=== PATIENT | male | born 1955 | race Caucasian/White ===

== ENCOUNTER 2024-07-05 14:35 | Emergency (ER) | payer MEDICARE ==
[~2024-07-05] VITALS: Ht 188 cm; Wt 90.0 kg
[2024-07-05 14:41] VITALS: TEMP 98.7
[2024-07-05] MEDS: albuterol 2.5 MG/3 ML nebule NEB ONE ×2 (15:13)
[2024-07-05] MEDS: ipratropium/albuterol 3ml nebule NEB ONE (15:14)
[2024-07-05 15:17] VITALS: PULSE 93; RESP 15; O2SAT 98
[2024-07-05 15:24] LABS: BASOPHILS % (AUTO) 0.3 % (0-1); EOSINOPHILS # (AUTO) 0.1 X10'3 (0-0.9); EOSINOPHILS % (AUTO) 1.6 % (0-6); HEMATOCRIT 49.5 % (42.0-52.0); HEMOGLOBIN 16.6 g/dl (14.0-17.9); LYMPHOCYTES # (AUTO) 1.3 X10'3 (1.1-4.8); LYMPHOCYTES % (AUTO) 15.7 % (21-51); MEAN CORPUSCULAR HEMOGLOBIN 31.7 PG (27.0-31.0); MEAN CORPUSCULAR HGB CONC 33.5 g/dL (33.0-36.5); MEAN CORPUSCULAR VOLUME 94.7 FL (78-98); MEAN PLATELET VOLUME 7.5 FL (7.4-10.4); MONOCYTES # (AUTO) 0.7 X10'3 (0-0.9); NEUTROPHILS # (AUTO) 6.3 X10'3 (1.8-7.7); NEUTROPHILS % (AUTO) 74.4 % (42-75); PLATELET COUNT 169 X10'3 (140-440); RED BLOOD COUNT 5.22 X10'6 (4.70-6.10); WHITE BLOOD COUNT 8.4 X10'3 (4.5-11.0)
[2024-07-05 15:30] LABS: APTT 26 SECONDS (22-32); PROTHROMBIN TIME 10.4 SECONDS (9.0-12.0)
[2024-07-05 15:40] LABS: ALBUMIN 3.8 G/DL (3.4-5.0); ANION GAP 9 (8-16); BLOOD UREA NITROGEN 21 MG/DL (7-18); BUN/CREATININE RATIO 27.6 (10.0-20.0); CALCIUM 10.1 MG/DL (8.5-10.1); CHLORIDE 100 MMOL/L (99-107); CREATININE 0.76 MG/DL (0.60-1.10); GLUCOSE 101 MG/DL (70-104); PRO BRAIN NATRIURETIC PEPTIDE 1576 PG/ML (0-125); SODIUM 138 MMOL/L (135-145); TOTAL CARBON DIOXIDE 28.9 MMOL/L (24-32); eCRCL 111 ML/MIN; eGFR > 90 ML/MIN
[2024-07-05] MEDS: normal saline 1000ML IV soln IVB ONE (15:58)
[2024-07-05] MEDS: methylPREDNISolone sod succ 125mg/2ml vial IV ONE (16:01)
[2024-07-05 16:06] VITALS: PULSE 102; RESP 26; O2SAT 95
[2024-07-05] MEDS: aspirin 81mg tab.chew PO ONE (16:55)
[2024-07-05] MEDS: ringers solution, lacted 1,000 ML IV ONE (16:55)
[2024-07-05 21:00] VITALS: BP 146/75; PULSE 103; RESP 17; O2SAT 94
== END 2024-07-05 22:10 | disposition left against medical advice (07) ==
LOC: ER 14:36
DX: J98.8 Other specified respiratory disorders (principal); R06.02 Shortness of breath; R06.83 Snoring; M54.2 Cervicalgia; Z20.822 Contact with and (suspected) exposure to COVID-19
CPT/HCPCS: 36415; 70490; 71045; 71250; 80048; 83605; 83880; 84484; 85025; 85610; 85730; 87040; 87811; 93005; 94640; 96361; 96365; 96375; 99285; A7015; J2919; J7030; J7120; Z7610; 70491; 71260; 94760

== ENCOUNTER 2024-08-21 07:26 | Day surgery (SDC) | payer MEDICARE, BC ==
[~2024-08-21] VITALS: Ht 193 cm; Wt 103.8 kg
[2024-08-21] VITALS (11 sets, daily range): BP systolic 99–140; BP diastolic 51–79; PULSE 73–98; RESP 13–22; TEMP 94; O2SAT 93–95
[2024-08-21 08:22] LABS: ALBUMIN 3.7 G/DL (3.4-5.0); ANION GAP 9 (8-16); BLOOD UREA NITROGEN 15 MG/DL (7-18); BUN/CREATININE RATIO 16.7 (10.0-20.0); CALCIUM 10.3 MG/DL (8.5-10.1); CHLORIDE 102 MMOL/L (99-107); GLUCOSE 107 MG/DL (70-104); MAGNESIUM 1.7 MG/DL (1.5-2.4); POTASSIUM 3.6 MMOL/L (3.5-5.1); PROTHROMBIN TIME 10.3 SECONDS (9.0-12.0); SODIUM 138 MMOL/L (135-145); TOTAL CARBON DIOXIDE 26.7 MMOL/L (24-32); eCRCL 99 ML/MIN; eGFR 84 ML/MIN
[2024-08-21 08:26] LABS: BASOPHILS % (AUTO) 0.7 % (0-1); EOSINOPHILS # (AUTO) 0.1 X10'3 (0-0.9); EOSINOPHILS % (AUTO) 2.1 % (0-6); HEMATOCRIT 45.1 % (42.0-52.0); HEMOGLOBIN 15.3 g/dl (14.0-17.9); LYMPHOCYTES # (AUTO) 1.4 X10'3 (1.1-4.8); LYMPHOCYTES % (AUTO) 25.9 % (21-51); MEAN CORPUSCULAR HEMOGLOBIN 31.8 PG (27.0-31.0); MEAN CORPUSCULAR HGB CONC 33.9 g/dL (33.0-36.5); MEAN CORPUSCULAR VOLUME 93.7 FL (78-98); MONOCYTES # (AUTO) 0.7 X10'3 (0-0.9); MONOCYTES % (AUTO) 12.3 % (2-12); NEUTROPHILS # (AUTO) 3.1 X10'3 (1.8-7.7); PLATELET COUNT 199 X10'3 (140-440); RED BLOOD COUNT 4.82 X10'6 (4.70-6.10); RED CELL DISTRIBUTION WIDTH 13.7 % (11.5-14.5); WHITE BLOOD COUNT 5.3 X10'3 (4.5-11.0)
[2024-08-21] MEDS ORDERED: CARV3.122 PO (08:47)
[2024-08-21] MEDS ORDERED: VALS40TA11 PO (08:47)
[2024-08-21] MEDS ORDERED: SPIR25TA5 PO (08:47)
[2024-08-21] MEDS ORDERED: FURO-150 PO (08:47)
[2024-08-21] MEDS: normal saline 1000ml 1,000 ML IV SCH (09:00)
[2024-08-21] MEDS: diphenhydrAMINE 25mg capsule PO PRN (09:00)
[2024-08-21] MEDS ORDERED: midazolam 1 mg/ML 2ml injection ONE ×2 (12:05→12:42)
[2024-08-21] MEDS ORDERED: heparin 1,000unit/ml 10ml vial 10 ML ONE (12:05)
[2024-08-21] MEDS ORDERED: verapamil 2.5 mg/ml inj IV ONE (12:05)
[2024-08-21] MEDS ORDERED: iohexol 350 MG/ML 50ML vial IV ONE (12:05)
[2024-08-21] MEDS ORDERED: fentaNYL/PF 50MCG/1 ML 2ML syringe ONE (12:05)
[2024-08-21] MEDS ORDERED: LIDOcaine 1% 30ml preserv. free vial ONE (12:05)
[2024-08-21] MEDS ORDERED: nitroGLYCERIN 500mcg/5mL D5W 5 ML IV ONE (12:06)
[2024-08-21] MEDS ORDERED: iohexol 350MG/ML 100ml bottle IV ONE (12:06)
[2024-08-21] MEDS ORDERED: HYDROcodone/acetaminophen 5mg/325mg tablet PO PRN (13:35)
[2024-08-21] MEDS ORDERED: normal saline 1000ml 1,000 ML IV SCH (13:35)
[2024-08-21] MEDS ORDERED: proCHLORperazine 10 MG/2 ml inj IV PRN (13:35)
[2024-08-21] MEDS ORDERED: ondansetron/PF 4mg/2ml inj IV PRN (13:35)
[2024-08-21] MEDS ORDERED: HYDROcodone/acetaminophen 10/325mg tab PO PRN (13:35)
== END 2024-08-21 17:30 | disposition home or self-care (01) ==
LOC: SSTAY O 07:26
PROVIDERS: ATTEND Internal Medicine Cardiovascular Disease
DX: R94.39 Abnormal result of other cardiovascular function study (principal); I25.10 Atherosclerotic heart disease of native coronary artery without angina pectoris; C76.1 Malignant neoplasm of thorax; I10 Essential (primary) hypertension; Z79.01 Long term (current) use of anticoagulants; Z79.899 Other long term (current) drug therapy; Z98.890 Other specified postprocedural states
CPT/HCPCS: 36415; 80048; 83735; 85025; 85610; 93005; 93458; 99152; A6258; A6402; C1894; J1644; J2003; J2250; J3010; J3490; J7030; Q0163; Q9967; Z7610; 99153

== ENCOUNTER 2024-08-25 05:54 | Day surgery (SDC) | payer MEDICARE, BC ==
[2024-08-25] VITALS (8 sets, daily range): BP systolic 92–102; BP diastolic 54–69; PULSE 60–77; RESP 10–16; O2SAT 92–97
[~2024-08-25] VITALS: Ht 193 cm; Wt 104.4 kg
[~2024-08-25 05:54] MED LIST: CARV3.122 PO; FURO-150 PO; SPIR25TA5 PO; VALS40TA11 PO
[2024-08-25 07:19] LABS: PROTHROMBIN TIME 10.3 SECONDS (9.0-12.0)
[2024-08-25 07:26] LABS: BASOPHILS % (AUTO) 0.5 % (0-1); EOSINOPHILS # (AUTO) 0.1 X10'3 (0-0.9); EOSINOPHILS % (AUTO) 2.2 % (0-6); HEMATOCRIT 42.2 % (42.0-52.0); HEMOGLOBIN 14.6 g/dl (14.0-17.9); LYMPHOCYTES # (AUTO) 1.6 X10'3 (1.1-4.8); LYMPHOCYTES % (AUTO) 29.4 % (21-51); MEAN CORPUSCULAR HEMOGLOBIN 32.1 PG (27.0-31.0); MEAN CORPUSCULAR HGB CONC 34.6 g/dL (33.0-36.5); MEAN CORPUSCULAR VOLUME 92.7 FL (78-98); MEAN PLATELET VOLUME 7.2 FL (7.4-10.4); MONOCYTES # (AUTO) 0.6 X10'3 (0-0.9); MONOCYTES % (AUTO) 11.8 % (2-12); NEUTROPHILS % (AUTO) 56.1 % (42-75); PLATELET COUNT 196 X10'3 (140-440); RED BLOOD COUNT 4.55 X10'6 (4.70-6.10); RED CELL DISTRIBUTION WIDTH 13.6 % (11.5-14.5); WHITE BLOOD COUNT 5.3 X10'3 (4.5-11.0)
[2024-08-25 07:33] LABS: ALBUMIN 3.6 G/DL (3.4-5.0); ANION GAP 10 (8-16); BLOOD UREA NITROGEN 21 MG/DL (7-18); BUN/CREATININE RATIO 24.7 (10.0-20.0); CALCIUM 10.3 MG/DL (8.5-10.1); CHLORIDE 103 MMOL/L (99-107); CREATININE 0.85 MG/DL (0.60-1.10); GLUCOSE 102 MG/DL (70-104); MAGNESIUM 1.7 MG/DL (1.5-2.4); POTASSIUM 3.6 MMOL/L (3.5-5.1); SODIUM 139 MMOL/L (135-145); TOTAL CARBON DIOXIDE 25.8 MMOL/L (24-32); eCRCL 105 ML/MIN; eGFR 90 ML/MIN
[2024-08-25] MEDS: VANCOMYCIN/WATER FOR INJ (PEG) 1.5GM/300 ML IVPB IV ONE (07:54)
[2024-08-25] MEDS: normal saline 1,000 ML IV SCH (07:54)
[2024-08-25] MEDS ORDERED: fentaNYL/PF 50MCG/1 ML 2ML syringe ONE ×2 (08:20→09:49)
[2024-08-25] MEDS ORDERED: iohexol 350 MG/ML 50ML vial IV ONE ×2 (08:20)
[2024-08-25] MEDS ORDERED: midazolam 1 mg/ML 2ml injection ONE ×2 (08:20→09:49)
[2024-08-25] MEDS ORDERED: LIDOcaine 1% w/EPI 1:100,000 inj. MDV 50 ML VIAL ONE (08:20)
[2024-08-25] MEDS ORDERED: vancomycin 1,000mg inj ONE (08:20)
[2024-08-25] MEDS ORDERED: ceFAZolin 1000mg inj ONE (09:29)
[2024-08-25] MEDS ORDERED: HYDROmorphone 1 mg/ml syringe ONE ×2 (09:55→10:55)
[2024-08-25] MEDS ORDERED: HYDROcodone/acetaminophen 10/325mg tab PO PRN (11:50)
[2024-08-25] MEDS: HYDROcodone/acetaminophen 5mg/325mg tablet PO PRN (12:48)
== END 2024-08-25 14:10 | disposition home or self-care (01) ==
LOC: SSTAY O 05:54
PROVIDERS: ATTEND Internal Medicine Cardiovascular Disease
DX: I42.8 Other cardiomyopathies (principal); I44.7 Left bundle-branch block, unspecified; I10 Essential (primary) hypertension; C14.0 Malignant neoplasm of pharynx, unspecified; Z93.0 Tracheostomy status; Z95.810 Presence of automatic (implantable) cardiac defibrillator
CPT/HCPCS: 33249; 36415; 71045; 80048; 83735; 85025; 85610; 93005; 99152; 99153; A4565; A4615; A4620; C1769; C1882; J0690; J1171; J2250; J3010; J3370; J3372; J3490; J7030; Q9967; Z7610; C1895; C1898; C1900

== ENCOUNTER 2025-03-09 14:30 | Outpatient (CLI) | payer MEDICARE, BC ==
--- NOTE | 2025-03-11 18:47 | CONSULTATION ---
DATE OF CONSULTATION: 03/09/2025 DICTATING PHYSICIAN: Lizzy Ayala M.S., [facility] MODIFIED BARIUM SWALLOW STUDY REPORT REFERRING PHYSICIAN: Fermin Moore III, MD HISTORY OF PRESENT ILLNESS: The patient is a 69-year-old male and consents to this evaluation. History is obtained from the patient and medical records. The patient's was not present during history collection, but she did come into the room to view the results. The patient has a history of malignant neoplasm of the larynx. On 07/06/2024, he underwent emergent tracheostomy. He completed chemo and radiation for throat cancer and completed in 12/2024. He went to the ER and had a new tracheostomy placed on 01/20/2025. The patient reports he had 35 total radiation treatments and 7 chemotherapy treatments. The patient notes that he is currently utilizing a PEG tube for his nutritional shakes and to swallow one medication. He reports that he has four 530 calorie shakes during the day through his PEG tube. The patient reports that he has just recently got his taste back and so he is trying to have food and liquid orally. He has been drinking water, soda and has been having ice cream, but reports nothing else at this time. The patient did note that his throat has a lot of pain and that it feels raw around the site of his trach. He reports that he has been having increased swelling and stiffness in the muscles in his throat and in the last couple of weeks. The patient reports that his baseline weight was 260 pounds and he is now currently 200 pounds. He is edentulous. CURRENT DIET: The patient is receiving most of his nutrition via PEG tube, but has been having liquids intermittently. MEDICATIONS: Acetaminophen, hydrocodone 325 mg/5 mg one tablet every four hours as needed, carvedilol 3.125 mg one tablet twice daily, Lasix, lidocaine 1% topical solution t.i.d., Magic mouthwash, magnesium oxide 400 mg b.i.d., MiraLax oral powder 17 g p.o. daily, spironolactone 25 mg 1 tablet daily, valsartan 40 mg 1 tablet daily. PARAMETERS: The patient is seated in the lateral 90-degree view and administered thin and nectar thick liquids as well as puree consistencies. Solid consistencies were not administered at this time due to the patient's tolerance of prior textures. RESULTS: In the oral stages of the swallow, lingual strength was noted to be mild to moderately reduced. There was a mild oral residue following the initial swallow of boluses. In the pharyngeal stage of the swallow, tongue base retraction was mild to moderately reduced. There was a moderate pharyngeal residue following the initial swallow of boluses. The patient demonstrated most difficulty with the boluses that were administered via spoon, which included the 1 mL and 3 mL thin liquid bolus and the puree bolus. It was noted that the patient demonstrated with aspiration that was slight for the puree bolus due to the decreased amount of pharyngeal clearance that occurred in the initial swallow of the bolus, the patient aspirated on the pharyngeal residue. The patient was able to adequately swallow self-regulated boluses of thin liquid from a cup one out of 2 times. The second time, he did not adequately move the tongue base and so he demonstrated with lena aspiration. He did recognize at that time that he did not correctly push the tongue base to the back of the throat as he does do better if he utilizes an effortful swallow in order to swallow the bolus. The patient also completed self-regulated nectar thick liquid from a cup that went well with no aspiration. The pt required multiple swallows to clear residue from the pharyngeal cavity for all consistencies. 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 The patient did not have his speaking valve in for the different boluses that he had. He was instructed to put it in when swallowing, but he reported that he had been having such difficulty with production that he was not able to breathe with it in at this time and he needed to have it out. DIAGNOSES: R13.12, dysphagia oropharyngeal phase, Z85.21, personal history of malignant neoplasm of the larynx, C14.0, throat cancer. PATIENT EDUCATION: Immediately following a modified barium swallow study, the patient and his were able to view the results. The patient was able to see how the current status of the swallowing mechanism decreases his ability to swallow normally. The patient was educated on the effortful swallow and was instructed to begin to practice 2 sets of 10 on a daily basis. The patient was also instructed in a further swallowing exercise to target strengthening of the tongue base and was instructed to complete two sets of 5 four days a week. He was then also instructed on a recommendation for speech therapy to strengthen the muscles involved in swallowing and agrees to participate at this time. RECOMMENDATIONS: * It is recommended the patient receive concomitant voice and swallowing therapy one time weekly for 12 weeks to improve the strength and range of motion of the swallowing musculature to ensure airway, safety protection and prevent aspiration. * It is recommended that the patient begin to complete these exercises targeting tongue base retraction. LONG-TERM GOALS: The patient will maintain adequate hydration/nutrition with optimum safety and efficiency of swallow function on p.o. intake and increase FOIS score to a 5, which indicates total oral intake of multiple consistencies requiring special preparation. PROGNOSIS: Prognosis for the patient is good based upon willingness to learn patient motivation and family support. FUNCTIONAL ORAL INTAKE: The FOIS was administered to establish and document a change in the functional eating activities of this patient over time. This is a 7-point scale with 1 indicating no oral intake and totally tube dependent and 7 indicating total oral intake with no restrictions. This patient received a 2, which indicates tube dependent with minimal/inconsistent oral intake. G-CODE: [id number]. Thank you very much for asking me to participate in the care of this kind patient. Should you have any questions regarding this evaluation or recommendations, please do not hesitate to contact me at [phone]. During this examination, 1:36 minutes of fluoroscopy time and 12.52 CAK mGy were utilized. Lizzy Ayala M.S., [facility] TID: [id number] RECEIPT: [id number] EVELYNE BOYD
== END 2025-03-09 23:59 | disposition home or self-care (01) ==
LOC: RAD 14:30
PROVIDERS: ATTEND Otolaryngology
DX: C14.0 Malignant neoplasm of pharynx, unspecified (principal); R13.12 Dysphagia, oropharyngeal phase; R13.10 Dysphagia, unspecified; Z85.21 Personal history of malignant neoplasm of larynx; Z79.899 Other long term (current) drug therapy; Z92.21 Personal history of antineoplastic chemotherapy; Z92.3 Personal history of irradiation; Z93.0 Tracheostomy status
CPT/HCPCS: 74230